=== PATIENT | male | born 1960 | race Caucasian/White ===

== ENCOUNTER → 2019-03-28 | Outpatient (CLI) | payer BC ==
[2019-03-28 15:37] LABS: HCT 44.5 % (39.0-53.0); HGB 15.2 gm/dL (13.0-17.5); MCH 30.4 pg (25.0-35.0); MCHC 34.2 g/dL (31.0-37.0); MCV 88.8 fL (80.0-100.0); Mean Platelet Volume 6.5; Platelet Count 219 k/uL (150-450); RBC 5.01 m/uL (4.30-5.90); WBC 6.4 k/uL (3.8-10.6)
== END | disposition home or self-care (01) ==
LOC: LABPAT 14:06
PROVIDERS: ATTEND Anesthesiology
DX: Z01.812 Encounter for preprocedural laboratory examination (principal); K40.90 Unilateral inguinal hernia, without obstruction or gangrene, not specified as recurrent
CPT/HCPCS: 36415; 85027

== ENCOUNTER 2019-04-02 07:10 | Day surgery (SDC) | payer BC ==
[2019-03-27 12:11] VITALS: BMI 29.1
[~2019-04-02 07:10] MED LIST: DEXAMETHASONE SOD PHOSPHATE 10 MG/ML 1 ML VIAL IV ONE; HEPARIN SODIUM,PORCINE 5,000 UNIT/ML 1 ML VIAL SQ ONE; HYDROmorphone 0.5 MG/0.5 ML SYRINGE IVP PRN; LIDOCAINE 1% 20 ML VIAL (10MG/ML) FOR IV START INTRADERMA PRN; MIDAZOLAM 2 MG/2 ML VIAL IV PRN; ONDANSETRON 4 MG/2 ML VIAL IVP ONE
[2019-04-02 07:39] VITALS: TEMP 97.9
[2019-04-02] MEDS ORDERED: LIDOCAINE 1% 20 ML VIAL (10MG/ML) FOR IV START INTRADERMA ONE ×2 (07:46→07:50)
[2019-04-02] MEDS: LACTATED RINGERS 1,000 ML IV SCH ×2 (07:46→07:50)
--- NOTE | 2019-04-02 08:12 | P.GSHP ---
History of Present Illness H&P Date: 04/02/19 Chief Complaint: Left inguinal hernia Patient here today for elective herniorrhaphy. Patient has complaints of a bulge left groin for the last few years. Mild pain at times. Does not feel anything on the right-hand side. No change in bowel habits. Past Medical History Past Medical History: Hypertension Additional Past Medical History / Comment(s): INGUINAL HERNIA History of Any Multi-Drug Resistant Organisms: None Reported Past Surgical History: Orthopedic Surgery Additional Past Surgical History / Comment(s): RT KNEE SX. COLONOSCOPY Past Anesthesia/Blood Transfusion Reactions: No Reported Reaction Smoking Status: Former smoker - Past Family History Mother Family Medical History: No Reported History Medications and Allergies Home Medications Medication Instructions Recorded Confirmed Type Aspirin [Adult Low Dose Aspirin EC] 81 mg PO DAILY 03/27/19 04/02/19 History Lisinopril [Zestril] 20 mg PO DAILY 03/27/19 04/02/19 History Allergies Allergy/AdvReac Type Severity Reaction Status Date / Time No Known Allergies Allergy Verified 04/02/19 07:37 Surgical - Exam Vital Signs Temp Pulse Resp BP Pulse Ox 97.9 F 65 16 159/87 96 04/02/19 07:32 04/02/19 07:32 04/02/19 07:32 04/02/19 07:32 04/02/19 07:32 Physical exam: General: Well-developed, well-nourished HEENT: Normocephalic, sclerae nonicteric Abdomen: Nontender, nondistended Extremities: No edema Neuro: Alert and oriented Assessment and Plan (1) Left inguinal hernia Narrative/Plan: Will proceed with laparoscopic da Angelo assisted left inguinal hernia repair with mesh, possible bilateral at this time. Risks of bleeding, infection, recurrence, bladder and bowel injury, numbness, nerve injury, conversion to an open procedure were discussed with the patient. The patient understands and wishes to proceed. Current Visit: Yes Status: Acute Code(s): K40.90 - UNIL INGUINAL HERNIA, W/O OBST OR GANGR, NOT SPCF RECUR SNOMED Code(s): 708741655
[2019-04-02] MEDS ORDERED: fentaNYL (PF) 50 MCG/ML 2 ML AMP ONE (09:16)
[2019-04-02] MEDS ORDERED: MIDAZOLAM 2 MG/2 ML VIAL ONE (09:16)
[2019-04-02] MEDS ORDERED: GLYCOPYRROLATE 0.2 MG/ML 2 ML VIAL ONE (09:16)
[2019-04-02] MEDS ORDERED: SUCCINYLCHOLINE CHLORIDE 100 MG/5 ML SYR IV ONE (09:16)
[2019-04-02] MEDS ORDERED: VECURONIUM 10 MG VIAL IV ONE (09:16)
[2019-04-02] MEDS ORDERED: LIDOCAINE 1% INJ 10MG/ML (20 ML MDV) ONE (09:16)
[2019-04-02] MEDS ORDERED: PROPOFOL 10 MG/ML 20 ML VIAL IV ONE (09:16)
[2019-04-02] MEDS ORDERED: NEOSTIGMINE 1 MG/ML 10 ML VIAL ONE (09:16)
[2019-04-02] MEDS ORDERED: BUPIVACAIN-EPI 0.25%-1:200,000 30 ML VIAL SQ ONE (09:20)
[2019-04-02] MEDS ORDERED: NALOXONE 0.4 MG/ML 1 ML VIAL IV PRN (11:25)
[2019-04-02] MEDS ORDERED: ACETAMINOPHEN TAB 325 MG TAB PO PRN (11:25)
[2019-04-02] MEDS ORDERED: TAMSULOSIN 0.4 MG CAP.ER.24H PO STA (11:25)
[2019-04-02] MEDS ORDERED: HYDROcodone/APAP 5-325MG 1 EACH TAB PO PRN (11:25)
--- NOTE | 2019-04-02 11:28 | P.OP ---
Date of Procedure: 04/02/19 Procedure(s) Performed: PREOPERATIVE DIAGNOSIS: Left inguinal hernia POSTOPERATIVE DIAGNOSIS: Same PROCEDURE: Laparoscopic repair moderate to large sized left direct inguinal hernia with the da Angelo robot assistance with mesh SURGEON: Stephanie EBL: Minimal ANESTHESIA: General COMPLICATIONS: None OPERATIVE PROCEDURE: Patient was placed in the operating table in the supine position. The patient was placed under general anesthesia. The abdomen was prepped and draped in usual sterile fashion. A small curvilinear supraumbilical incision was made. The fascia was retracted anteriorly with [place] forceps. The Veress needle was inserted. The saline drop test was normal. Insufflation took place to 15 mmHg. A 5 mm trocar was placed into the peritoneal cavity. This was later switched to a 12 mm trocar. 2 additional 8 mm trochars were placed in the right upper quadrant and left upper quadrant under visualization. The robotic arms were then brought in and docked into place. The fenestrated bipolar was used in the left arm and the laparoscopic mikki was utilized in the right arm. A 30 12 mm scope was used in the up position. The peritoneal cavity was inspected. The patient had evidence of a small indirect hernia on the left side. There was a depression at the direct space suggesting an additional direct hernia. No hernias were identified on the right-hand side. There adhesions between the peritoneum in the sigmoid colon that were left in place. The peritoneum was incised in a horizontal fashion cephalad to the internal inguinal ring. Following that careful dissection of the preperitoneal space took place. This took place using both electrocautery, sharp dissection but primarily blunt dissection. Visualization of the pubic tubercle and Prosper's ligament took place medially. Full dissection took place laterally as well. The indirect hernia sac was fully dissected. The patient's direct hernia was fairly large containing a large portion of preperitoneal fat. A portion of this fat was excised. The defect in the direct space was approximately 2 x 1.5 cm. This was immediately medial to the inferior epigastric vasculature. Once we had adequate space the 15 x 10 progrip mesh was advanced into the preperitoneal space and flattened out appropriately to cover all potential hernia sites. No sutures were used. The peritoneal defect was then closed using a locking 2-0 VLok suture. I did incorporate the preperitoneal fatty lobule into the peritoneal closure to help prevent sliding of this beneath the mesh. The pneumoperitoneum was then evacuated. The fascia at the 12 mm site was closed using the [place] Kearns technique and an 0 Vicryl stitch. The skin of all 3 sites was closed using a 4-0 Monocryl stitch. Skin glue was then applied. DISPOSITION: Stable to recovery room
[2019-04-02 12:08] VITALS: RESP 16
[2019-04-02] MEDS ORDERED: HYDROcodone/APAP 5-325MG 1 EACH TAB PO ONE (12:55)
[2019-04-02 13:08] VITALS: BP 147/96; PULSE 77
== END 2019-04-02 13:56 | disposition home or self-care (01) ==
LOC: OR 07:10
PROVIDERS: ATTEND Surgery
DX: K40.90 Unilateral inguinal hernia, without obstruction or gangrene, not specified as recurrent (principal); D17.6 Benign lipomatous neoplasm of spermatic cord; I10 Essential (primary) hypertension; Z87.891 Personal history of nicotine dependence; Z79.82 Long term (current) use of aspirin; Z79.899 Other long term (current) drug therapy; Z98.890 Other specified postprocedural states
CPT/HCPCS: 49650; 88304; C1781; J2250; J1644; J1100; J2710; J0690; J2405; J2001; J3010; J0330; J2704

== ENCOUNTER 2019-08-25 10:18 | Emergency (ER) | payer BC ==
[2019-08-25 10:39] VITALS: TEMP 98.2
[2019-08-25 12:35] LABS: ALT 23 U/L (4-49); AST 28 U/L (17-59); African American GFR (CKD) >90 (>60 ml/min/1.73 sqM); Albumin 4.3 g/dL (3.5-5.0); Alkaline Phosphatase 49 U/L (38-126); Anion Gap 7 mmol/L; Blood Urea Nitrogen 13 mg/dL (9-20); Calcium 9.3 mg/dL (8.4-10.2); Carbon Dioxide 26 mmol/L (22-30); Chloride 106 mmol/L (98-107); Glucose 100 mg/dL (74-99); Magnesium 2.1 mg/dL (1.6-2.3); Non-African American GFR(CKD) >90 (>60 ml/min/1.73 sqM); Potassium 4.5 mmol/L (3.5-5.1); Sodium 139 mmol/L (137-145); Total Bilirubin 0.9 mg/dL (0.2-1.3); Total Protein 7.2 g/dL (6.3-8.2)
[2019-08-25 12:37] LABS: Partial Thromboplastin Time 23.4 sec (22.0-30.0); Prothrombin Time 10.1 sec (9.0-12.0)
[2019-08-25 12:40] LABS: Basophils % (A) 1 %; Eosinophils # (A) 0.1 k/uL (0-0.7); Eosinophils % (A) 2 %; HCT 40.1 % (39.0-53.0); HGB 14.2 gm/dL (13.0-17.5); Lymphocytes # (A) 1.5 k/uL (1.0-4.8); Lymphocytes % (A) 32 %; MCH 30.6 pg (25.0-35.0); MCHC 35.4 g/dL (31.0-37.0); MCV 86.4 fL (80.0-100.0); Mean Platelet Volume 6.9; Monocytes # (A) 0.3 k/uL (0-1.0); Monocytes % (A) 7 %; Neutrophils # (A) 2.7 k/uL (1.3-7.7); Neutrophils % (A) 57 %; Platelet Count 266 k/uL (150-450); RBC 4.64 m/uL (4.30-5.90); RDW 12.4 % (11.5-15.5); WBC 4.7 k/uL (3.8-10.6)
--- NOTE | 2019-08-25 12:45 | CT ---
EXAMINATION TYPE: CT brain wo con DATE OF EXAM: 08/25/2019 HISTORY: Left arm numbness, elevated blood pressure CT DLP: 1079.4 mGycm. Automated Exposure Control for Dose Reduction was Utilized. TECHNIQUE: CT scan of the head is performed without contrast. COMPARISON: None. FINDINGS: There is no acute intracranial hemorrhage or midline shift identified. There is diffuse v entricular and sulcal prominence consistent with diffuse age-related cerebral atrophy. There is low- attenuation in the periventricular white matter consistent with chronic small vessel ischemic change. Mild mucosal thickening involving the right maxillary sinus with tiny mucous retention cyst or poly p axial image 1 at 1.3 cm medial wall. IMPRESSION: No acute intracranial hemorrhage or midline shift. There is mild diffuse age-related ce rebral atrophy and chronic small vessel ischemic change noted.
--- NOTE | 2019-08-25 12:50 | XR ---
EXAMINATION TYPE: XR chest 2V DATE OF EXAM: 08/25/2019 COMPARISON: None HISTORY: Shortness of breath TECHNIQUE: Frontal and lateral views of the chest are obtained. FINDINGS: Scattered senescent parenchymal changes noted. Hyperinflation compatible with COPD. No evidence for infiltrate. No evidence for atelectasis. Heart size is stable. Mediastinal structures are stable and grossly unremarkable. No evidence for hilar prominence. Degenerative changes dorsal spine. IMPRESSION: 1. No evidence for acute pulmonary disease.
--- NOTE | 2019-08-25 14:04 | ED ---
General Adult HPI - General Chief complaint: Recheck/Abnormal Lab/Rx Stated complaint: High blood pressure/left arm pain Time Seen by Provider: 08/25/19 11:01 Source: patient Mode of arrival: ambulatory Limitations: no limitations - History of Present Illness Initial comments: The patient is a 59-year-old male with past medical history of hypertension p resents emergency room with reported numbness in his left humeral region for the past 3 days. He describes it as a numbing sensation which extends from the shoulder to the elbow. Denies any numbness or tingling into his hand. Denies any chest pain or shortness of breath. No left upper extremity weakness. Denies any weakness in his legs. No headaches or visual changes. Denies any nausea or vomiting. No diaphoresis. The patient had his blood pressure taken and it was noted to be high. Because this he did come to the emergency room for evaluation. He states he normally does not take his blood pressure. The last he visited his physician his blood pressure was normal. He does take lisinopril 20 mg. He denies any ripping or tearing sensation to his back. No abdominal pain. Denies any changes in bowel or bladder habits. No history of DVT or PE. Denies fevers, chills or hemoptysis. There are no other alleviating, precipitating or modifying factors - Related Data Home Medications Medication Instructions Recorded Confirmed Aspirin [Adult Low Dose Aspirin EC] 81 mg PO DAILY 03/27/19 04/02/19 Lisinopril [Zestril] 20 mg PO DAILY 03/27/19 04/02/19 Previous Rx's Medication Instructions Recorded Hydrocodone/Acetaminophen [[place] 1 tab PO Q6HR PRN 3 Days #10 tab 04/02/19 5-325] Allergies Allergy/AdvReac Type Severity Reaction Status Date / Time No Known Allergies Allergy Verified 08/25/19 10:37 Review of Systems ROS Statement: Those systems with pertinent positive or pertinent negative responses have been documented in the HPI. ROS Other: All systems not noted in ROS Statement are negative. Past Medical History Past Medical History: Hypertension Additional Past Medical History / Comment(s): INGUINAL HERNIA History of Any Multi-Drug Resistant Organisms: None Reported Past Surgical History: Orthopedic Surgery Additional Past Surgical History / Comment(s): RT KNEE SX. COLONOSCOPY Past Anesthesia/Blood Transfusion Reactions: No Reported Reaction Past Psychological History: No Psychological Hx Reported Smoking Status: Former smoker Past Alcohol Use History: Daily Past Drug Use History: None Reported - Past Family History Mother Family Medical History: No Reported History General Exam Limitations: no limitations General appearance: alert, in no apparent distress Head exam: Present: atraumatic, normocephalic, normal inspection Eye exam: Present: normal appearance, PERRL, EOMI. Absent: scleral icterus, conjunctival injection, periorbital swelling ENT exam: Present: normal exam, mucous membranes moist Neck exam: Present: normal inspection. Absent: tenderness, meningismus, lymphadenopathy Respiratory exam: Present: normal lung sounds bilaterally. Absent: respiratory distress, wheezes, rales, rhonchi, stridor Cardiovascular Exam: Present: regular rate, normal rhythm, normal heart sounds, other (equal pusles in the bilateral upper extremities). Absent: systolic murmur, diastolic murmur, rubs, gallop, clicks GI/Abdominal exam: Present: soft, normal bowel sounds. Absent: distended, tenderness, guarding, rebound, rigid Extremities exam: Present: normal inspection, full ROM, normal capillary refill. Absent: tenderness, pedal edema, joint swelling, calf tenderness Back exam: Present: normal inspection Neurological exam: Present: alert, oriented X3, CN II-XII intact Psychiatric exam: Present: normal affect, normal mood Skin exam: Present: warm, dry, intact, normal color. Absent: rash Course Vital Signs 08/25/19 08/25/19 08/25/19 10:37 11:30 13:30 Temperature 98.2 F Pulse Rate 75 68 67 Respiratory 18 16 18 Rate Blood Pressure 187/99 155/94 149/91 O2 Sat by Pulse 98 94 L 96 Oximetry 08/25/19 14:00 Temperature Pulse Rate 63 Respiratory 18 Rate Blood Pressure 157/94 O2 Sat by Pulse 96 Oximetry EKG Findings - EKG Comments: EKG Findings:: EKG demonstrates normal sinus rhythm with ventricular rate of 70. WI interval 160. QRS 18. QTC of 412. No acute ST segment elevations or depressions concerning for ischemic changes Medical Decision Making - Medical Decision Making Upon arrival the patient is placed in room 24. A thorough history and physical exam was performed. A 12-lead EKG was performed which demonstrates no acute findings. Laboratory studies are conducted to include a CBC, CMP and coagulation studies. Troponin is negative. Chest x-ray demonstrates no evidence of acute cardiopulmonary disease. I did CT the patient's head because of his left upper extremity numbness which demonstrates no acute intracranial hemorrhage or midline shift. I reevaluated the patient. He has had improvement in his blood pressure without medication administration. His blood pressure is currently 149/91. I discussed diagnosis, differential and treatment options. At this time the patient will be discharged home and is to follow-up with his primary care physician within 2-4 days. I would like his blood pressure reevaluated before initial other medications for high blood pressure. The patient understood this. If he has any new or worsening symptoms she should return to the emergency room. Patient was discharged home in stable condition - Lab Data Result diagrams: 08/25/19 11:05 08/25/19 11:05 Lab Results 08/25/19 08/25/19 08/25/19 Range/Units 11:05 11:05 11:05 WBC 4.7 (3.8-10.6) k/uL RBC 4.64 (4.30-5.90) m/uL Hgb 14.2 (13.0-17.5) gm/dL Hct 40.1 (39.0-53.0) % MCV 86.4 (80.0-100.0) fL MCH 30.6 (25.0-35.0) pg MCHC 35.4 (31.0-37.0) g/dL RDW 12.4 (11.5-15.5) % Plt Count 266 (150-450) k/uL Neutrophils % 57 % Lymphocytes % 32 % Monocytes % 7 % Eosinophils % 2 % Basophils % 1 % Neutrophils # 2.7 (1.3-7.7) k/uL Lymphocytes # 1.5 (1.0-4.8) k/uL Monocytes # 0.3 (0-1.0) k/uL Eosinophils # 0.1 (0-0.7) k/uL Basophils # 0.0 (0-0.2) k/uL PT 10.1 (9.0-12.0) sec INR 1.0 (<1.2) APTT 23.4 (22.0-30.0) sec Sodium 139 (137-145) mmol/L Potassium 4.5 (3.5-5.1) mmol/L Chloride 106 (98-107) mmol/L Carbon Dioxide 26 (22-30) mmol/L Anion Gap 7 mmol/L BUN 13 (9-20) mg/dL Creatinine 0.79 (0.66-1.25) mg/dL Est GFR (CKD-EPI)AfAm >90 (>60 ml/min/1.73 sqM) Est GFR (CKD-EPI)NonAf >90 (>60 ml/min/1.73 sqM) Glucose 100 H (74-99) mg/dL Calcium 9.3 (8.4-10.2) mg/dL Magnesium 2.1 (1.6-2.3) mg/dL Total Bilirubin 0.9 (0.2-1.3) mg/dL AST 28 (17-59) U/L ALT 23 (4-49) U/L Alkaline Phosphatase 49 (38-126) U/L Troponin I (0.000-0.034) ng/mL Total Protein 7.2 (6.3-8.2) g/dL Albumin 4.3 (3.5-5.0) g/dL Lipase 123 (23-300) U/L 08/25/19 Range/Units 11:05 WBC (3.8-10.6) k/uL RBC (4.30-5.90) m/uL Hgb (13.0-17.5) gm/dL Hct (39.0-53.0) % MCV (80.0-100.0) fL MCH (25.0-35.0) pg MCHC (31.0-37.0) g/dL RDW (11.5-15.5) % Plt Count (150-450) k/uL Neutrophils % % Lymphocytes % % Monocytes % % Eosinophils % % Basophils % % Neutrophils # (1.3-7.7) k/uL Lymphocytes # (1.0-4.8) k/uL Monocytes # (0-1.0) k/uL Eosinophils # (0-0.7) k/uL Basophils # (0-0.2) k/uL PT (9.0-12.0) sec INR (<1.2) APTT (22.0-30.0) sec Sodium (137-145) mmol/L Potassium (3.5-5.1) mmol/L Chloride (98-107) mmol/L Carbon Dioxide (22-30) mmol/L Anion Gap mmol/L BUN (9-20) mg/dL Creatinine (0.66-1.25) mg/dL Est GFR (CKD-EPI)AfAm (>60 ml/min/1.73 sqM) Est GFR (CKD-EPI)NonAf (>60 ml/min/1.73 sqM) Glucose (74-99) mg/dL Calcium (8.4-10.2) mg/dL Magnesium (1.6-2.3) mg/dL Total Bilirubin (0.2-1.3) mg/dL AST (17-59) U/L ALT (4-49) U/L Alkaline Phosphatase (38-126) U/L Troponin I <0.012 (0.000-0.034) ng/mL Total Protein (6.3-8.2) g/dL Albumin (3.5-5.0) g/dL Lipase (23-300) U/L Disposition Clinical Impression: Hypertension, Left arm numbness Disposition: HOME SELF-CARE Condition: Stable Instructions (If sedation given, give patient instructions): Hypertension (ED) Additional Instructions: Please follow up with Dr. Reyna in office within 2 days. Return to the emergency room for any new or worsening symptoms Is patient prescribed a controlled substance at d/c from ED?: No Referrals: Song Reyna MD [Primary Care Provider] - 1-2 days Time of Disposition: 14:04
[2019-08-25 14:14] VITALS: BP 157/94; PULSE 63; RESP 18
== END 2019-08-25 14:18 | disposition home or self-care (01) ==
LOC: EC 10:18
DX: I10 Essential (primary) hypertension (principal); R20.0 Anesthesia of skin; M79.602 Pain in left arm; Z79.82 Long term (current) use of aspirin; Z79.899 Other long term (current) drug therapy; Z87.891 Personal history of nicotine dependence
CPT/HCPCS: 36415; 70450; 71046; 80053; 83690; 83735; 84484; 85025; 85610; 85730; 93005; 99284

== ENCOUNTER → 2019-09-08 | Outpatient (CLI) | payer BC ==
--- NOTE | 2019-09-08 21:57 | US ---
EXAMINATION TYPE: US carotid duplex BILAT DATE OF EXAM: 09/08/2019 COMPARISON: NONE CLINICAL HISTORY: 59-year-old male G45.9 TIA. TECHNIQUE: Carotid duplex ultrasound examination. Indirect Doppler criteria was utilized. FINDINGS: EXAM MEASUREMENTS: RIGHT: Peak Systolic Velocity (PSV) cm/sec ----- Right CCA: 102.6 ----- Right ICA: 79.3 ----- Right ECA: 91.0 ICA/CCA ratio: 0.8 RIGHT: End Diastole cm/sec ----- Right CCA: 29.9 ----- Right ICA: 27.0 ----- Right ECA: 16.9 LEFT: Peak Systolic Velocity (PSV) cm/sec ----- Left CCA: 77.9 ----- Left ICA: 86.4 ----- Left ECA: 76.2 ICA/CCA ratio: LEFT: End Diastole cm/sec ----- Left CCA: 19.8 ----- Left ICA: 38.0 ----- Left ECA: 18.0 VERTEBRALS (direction of flow): Right Vertebral: Antegrade Left Vertebral: Antegrade Rhythm: Normal No significant stenosis seen IMPRESSION: No hemodynamically significant ICA stenosis on either side. Criteria for Assigning % of Stenosis / Diameter reduction (Estimation based on the indirect measurements of the internal carotid artery velocities (ICA PSV). 1. Normal (no stenosis)=ICA PSV < 125 cm/s: ratio < 2.0: ICA EDV<40 cm/s. 2. Less than 50% stenosis=ICA PSV < 125 cm/s: ratio < 2.0: ICA EDV<40 cm/s. 3. 50 to 69% stenosis=ICA PSV of 125 to 230 cm/s: ration 2.0 ? 4.0: ICA EDV 40-100 cm/s. 4. Greater than 70% stenosis to near occlusion= ICA PSV > 230 cm/s: ratio > 4.0: ICA EDV > 100 cm/s. 5. Near occlusion= ICA PSV velocities may be low or undetectable: variable ratio and ICA EDV. 6. Total occlusion=unable to detect flow.
--- NOTE | 2019-09-09 10:38 | XR ---
Cervical spine HISTORY: Spinal enthesopathy, pain radiating down left arm 6 views of the cervical spine Loss of normal cervical lordosis could be due to muscle spasm. Minimal anterolisthesis grade 1 C2-3. Cervical vertebral bodies show preserved height and bone mineralization. There is multilevel facet ar thropathy change. Possible carotid artery calcifications noted. No significant foraminal encroachment present. Multilevel spondylosis noted. IMPRESSION: Facet arthropathy. Cervical spondylosis, cervical MRI may be of benefit.
== END | disposition home or self-care (01) ==
LOC: RADUSWWP 16:42
PROVIDERS: ATTEND Internal Medicine Geriatric Medicine
DX: M47.812 Spondylosis without myelopathy or radiculopathy, cervical region (principal); M46.92 Unspecified inflammatory spondylopathy, cervical region; G45.9 Transient cerebral ischemic attack, unspecified
CPT/HCPCS: 72050; 93880